=== PATIENT | female | born 2005 | race Caucasian/White ===

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

== ENCOUNTER 2023-07-29 20:50 | Emergency (ER) | payer MEDICAID, OTHER ==
[~2023-07-29] VITALS: Ht 160 cm; Wt 63.5 kg
[2023-07-29 21:25] VITALS: BP 126/77; PULSE 97; RESP 19; TEMP 98; TEMP 98.1; O2SAT 98
[2023-07-29 21:30] VITALS: O2SAT 98
[2023-07-30] MEDS ORDERED: ALBU0.0912 INH (00:09)
[2023-07-30] MEDS ORDERED: METH4TAB1 PO (00:09)
== END 2023-07-30 00:19 | disposition home or self-care (01) ==
LOC: MED 20:50
DX: R09.1 Pleurisy (principal); Z79.899 Other long term (current) drug therapy
CPT/HCPCS: 71045; 93005; 99283